=== PATIENT | male | born 1955 | race Caucasian/White ===

== ENCOUNTER 2019-06-06 17:51 | Emergency (ER) | payer MEDICARE, OTHER ==
--- NOTE | 2019-06-06 18:42 | EDM.PDOC ---
ED HPI GENERAL MEDICAL PROBLEM - General Chief Complaint: Genitourinary Problem Stated Complaint: KIDNEY STONE? Time Seen by Provider: 06/06/19 18:38 Source of Information: Reports: Patient History Limitations: Reports: No Limitations - History of Present Illness INITIAL COMMENTS - FREE TEXT/NARRATIVE: pt arrived with pain in the suprapupic area. this started about 8 am and has gotten worse. It is definitely both sides. Onset: Today, Sudden, Other (PT HAD A SUDDEN ONSET OD SUPRAPUBIC PAIN. hE STATES THIS DID COME IN WAVES. hE HAD AN EPISODE OF VERY SEVERE PAIN HE VOIDED JUST BEFORE HE WAS PUT IN THE ROOM. ) Duration: Hour(s): Location: Reports: Abdomen Associated Symptoms: Reports: No Other Symptoms, Other (PT DID HAVE SOME NAUSEAA WHEN THE PAIN WAS SEVERE. hIS BMS HAVE BEEN NORMAL. ) Lower Abdomen Pain Score (Numeric/FACES): 2 - Related Data Allergies Allergy/AdvReac Type Severity Reaction Status Date / Time No Known Allergies Allergy Verified 06/06/19 18:31 Home Meds: Home Meds Aspirin [Halfprin] 81 mg PO DAILY 06/06/19 [History] DULoxetine [Cymbalta] 60 mg PO DAILY 06/06/19 [History] Metoprolol Tartrate 50 mg PO DAILY 06/06/19 [History] amLODIPine [Norvasc] 10 mg PO DAILY 06/06/19 [History] metFORMIN [Glucophage XR] 1,000 mg PO BIDMEALS 06/06/19 [History] ED ROS GENERAL - Review of Systems Review Of Systems: See Below Constitutional: Reports: No Symptoms HEENT: Reports: No Symptoms Respiratory: Reports: No Symptoms Cardiovascular: Reports: No Symptoms Endocrine: Reports: No Symptoms GI/Abdominal: Reports: Abdominal Pain, Other (PT HAS SEVERE PAIN IN THE SUPRAPUBIC AREA. ) : Reports: Other ( SUPRA PUBIC PAIN) Musculoskeletal: Reports: No Symptoms Skin: Reports: No Symptoms Neurological: Reports: No Symptoms ED EXAM, GI/ABD - Physical Exam Exam: See Below Text/Narrative:: PT HAS SEVERE PAIN IN THE SUPRA PUBIC AREA. hE HAS HAD PAIN SINCE 8 am COMING AND GOING. hE HAD SLIGHT NAUSEA. iT HAS FELT LIKE WHEN HE HAS PASSED STONES IN THE PAST. Exam Limited By: No Limitations General Appearance: Alert, Severe Distress, Other ( pT WAS VERY UNCOMFORTABLE JUST HE WAS BEING PUT IN THE ROOM. hE WENT TO THE br AND IT WAS VERY SEVERE AT THAT TIME. ) Ears: Normal TMs Nose: Normal Inspection Throat/Mouth: Normal Inspection Head: Atraumatic Neck: Normal Inspection Respiratory/Chest: No Respiratory Distress Cardiovascular: Normal Peripheral Pulses GI/Abdominal Exam: Soft, Other (MILD SUPRA PUPIC TENDERNESS) Rectal (Males) Exam: Deferred Back Exam: Normal Inspection Extremities: Normal Inspection Neurological: Alert, Oriented, Normal Cognition Course - Vital Signs Last Recorded V/S: Last Vital Signs Temp 35.7 C 06/06/19 18:35 Pulse 94 06/06/19 18:35 Resp 16 06/06/19 18:35 BP 128/81 06/06/19 18:35 Pulse Ox 94 L 06/06/19 18:35 - Orders/Labs/Meds Orders: Active Orders 24 hr Category Date Time Status Sodium Chloride 0.9% [Normal Saline] 1,000 ml Med 06/06/19 19:00 Active IV ASDIRECTED Medication Orders Sodium Chloride (Normal Saline) 1,000 mls @ 999 mls/hr IV ASDIRECTED JANY Last Admin: 06/06/19 19:54 Dose: 999 mls/hr Labs: Laboratory Tests 06/06/19 06/06/19 06/06/19 Range/Units 18:36 18:36 18:36 WBC 10.0 (4.5-11.0) K/uL RBC 4.31 (4.30-5.90) M/uL Hgb 14.8 (12.0-15.0) g/dL Hct 42.0 (40.0-54.0) % MCV 97 (80-98) fL MCH 34 H (27-31) pg MCHC 35 (32-36) % Plt Count 217 (150-400) K/uL Neut % (Auto) 64 (36-66) % Lymph % (Auto) 22 L (24-44) % Meigs % (Auto) 9 H (2-6) % Eos % (Auto) 5 H (2-4) % Baso % (Auto) 0 (0-1) % Sodium 140 (140-148) mmol/L Potassium 4.3 (3.6-5.2) mmol/L Chloride 104 (100-108) mmol/L Carbon Dioxide 25 (21-32) mmol/L Anion Gap 11.4 (5.0-14.0) mmol/L BUN 12 (7-18) mg/dL Creatinine 1.1 (0.8-1.3) mg/dL Est Cr Clr Drug Dosing 70.05 mL/min Estimated GFR (MDRD) > 60 (>60) Glucose 107 H (74-106) mg/dL Calcium 9.1 (8.5-10.1) mg/dL Total Bilirubin 0.5 (0.2-1.0) mg/dL AST 25 (15-37) U/L ALT 48 (12-78) U/L Alkaline Phosphatase 80 (46-116) U/L C-Reactive Protein 0.00 (0.0-0.3) mg/dL Total Protein 7.2 (6.4-8.2) g/dL Albumin 3.9 (3.4-5.0) g/dL Globulin 3.3 (2.3-3.5) g/dL Albumin/Globulin Ratio 1.2 (1.2-2.2) Urine Color Urine Appearance Urine pH (4.5-8.0) Ur Specific [place] (1.008-1.030) Urine Protein (NEGATIVE) mg/dL Urine Glucose (UA) (NEGATIVE) mg/dL Urine Ketones (NEGATIVE) mg/dL Urine Occult Blood (NEGATIVE) Urine Nitrite (NEGAITVE) Urine Bilirubin (NEGATIVE) Urine Urobilinogen (NORMAL) mg/dL Ur Leukocyte Esterase (NEGATIVE) Urine RBC (0-5) Urine WBC (0-5) Ur Epithelial Cells Amorphous Sediment Urine Bacteria Urine Mucus 06/06/19 Range/Units 18:43 WBC (4.5-11.0) K/uL RBC (4.30-5.90) M/uL Hgb (12.0-15.0) g/dL Hct (40.0-54.0) % MCV (80-98) fL MCH (27-31) pg MCHC (32-36) % Plt Count (150-400) K/uL Neut % (Auto) (36-66) % Lymph % (Auto) (24-44) % [place] % (Auto) (2-6) % Eos % (Auto) (2-4) % Baso % (Auto) (0-1) % Sodium (140-148) mmol/L Potassium (3.6-5.2) mmol/L Chloride (100-108) mmol/L Carbon Dioxide (21-32) mmol/L Anion Gap (5.0-14.0) mmol/L BUN (7-18) mg/dL Creatinine (0.8-1.3) mg/dL Est Cr Clr Drug Dosing mL/min Estimated GFR (MDRD) (>60) Glucose (74-106) mg/dL Calcium (8.5-10.1) mg/dL Total Bilirubin (0.2-1.0) mg/dL AST (15-37) U/L ALT (12-78) U/L Alkaline Phosphatase (46-116) U/L C-Reactive Protein (0.0-0.3) mg/dL Total Protein (6.4-8.2) g/dL Albumin (3.4-5.0) g/dL Globulin (2.3-3.5) g/dL Albumin/Globulin Ratio (1.2-2.2) Urine Color Yellow Urine Appearance Clear Urine pH 5.0 (4.5-8.0) Ur Specific [place] 1.005 L (1.008-1.030) Urine Protein Negative (NEGATIVE) mg/dL Urine Glucose (UA) Normal (NEGATIVE) mg/dL Urine Ketones Negative (NEGATIVE) mg/dL Urine Occult Blood Large (NEGATIVE) Urine Nitrite Negative (NEGAITVE) Urine Bilirubin Negative (NEGATIVE) Urine Urobilinogen Normal (NORMAL) mg/dL Ur Leukocyte Esterase Negative (NEGATIVE) Urine RBC 10-20 H (0-5) Urine WBC Not seen (0-5) Ur Epithelial Cells Not seen Amorphous Sediment Rare Urine Bacteria Not seen Urine Mucus Not seen Meds: Medications Generic Name Dose Route Start Last Admin Trade Name Freq PRN Reason Stop Dose Admin Sodium Chloride 1,000 mls @ 999 mls/hr 06/06/19 19:00 06/06/19 19:54 Normal Saline IV 999 mls/hr ASDIRECTED [facility] Administration - Re-Assessments/Exams Free Text/Narrative Re-Assessment/Exam: 06/06/19 20:46 PT HAD RBCS IN HIS URINE. hIS URINE DID NOT APPEAR INFECTED. hE HAD A CAT SCAN OF THE ABDOMAN PELVIS WITHOUT CONTRAST AND HE HAD STONES IN BOTH KIDNEYS, HE HAD A 3 MM STONE EITHER IN THE BLADDER OR IN THE WALL OF THE BLADDER. i BELIEVE SINCE HE REMAINED PAINFREE FOR 2 HOURS THAT HE [PASSED IT INTO THE BLADDER. Departure - Departure Time of Disposition: 20:37 Disposition: Home, Self-Care 01 Condition: Fair Clinical Impression: Stone, bladder, Renal colic - Discharge Information Referrals: PCP,None [Primary Care Provider] - Forms: ED Department Discharge Care Plan Goals: cat scan showed a 3 mm stone in the bladder or in the wall of the bladder. i BELIEVE THE LAST EPISODE OF PAIN WHICH WAS FELT IS WHEN THE STONE PASSED-- HE WENT TO THE BR JUST BEFORE BEING PUT IN THE ROOM T PUSH FLUIDS, TOROFOL 10 MG Q6H PRN FOR PAIN, ONLY FILL IF PAIN REOCCURS. - My Orders Last 24 Hours: My Active Orders 06/06/19 19:00 Sodium Chloride 0.9% [Normal Saline] 1,000 ml IV ASDIRECTED - Assessment/Plan Last 24 Hours: My Active Orders 06/06/19 19:00 Sodium Chloride 0.9% [Normal Saline] 1,000 ml IV ASDIRECTED
[2019-06-06] MEDS ORDERED: Sodium Chloride 0.9% 1,000 ML IV SCH (19:00)
--- NOTE | 2019-06-06 20:34 | CRLCT ---
INDICATION: Suprapubic abdominal pain. TECHNIQUE: Multiple axial images were obtained from the diaphragm to the symphysis pubis without contrast. Sagittal and coronal re-formatted images were obtained. COMPARISON: None. FINDINGS: The visualized portion of the lung bases are clear. The liver, spleen, pancreas and adrenal glands are of unremarkable nonenhanced CT appearance. There are 2 stones in the right kidney largest in the mid kidney measuring 0.6 x 0.2 cm. There is a 4 cm cyst in lower pole of the right kidney and a second 1.4 cm cyst in the right mid kidney. There is no right hydronephrosis. There is a 0.3 cm stone which is either at the right ureterovesical junction or just into the urinary bladder. In the left kidney there are 2 stones seen largest in the upper pole measuring 0.7 x 0.3 cm. There is no left hydronephrosis. There is no stone seen in the left ureter. There is no evidence of a bowel obstruction. The appendix is visualized in the right lower quadrant and is unremarkable. There are diverticula in the descending and sigmoid colon. There is no evidence of a diverticulitis. The abdominal aorta is normal in caliber. There are atherosclerotic calcification. There are calcifications in the prostate gland. There are phleboliths in the pelvis. There is no free fluid identified in the abdomen or pelvis. There are degenerative changes in the spine. IMPRESSION: 1. 0.3 cm stone which is either right at the ureterovesical junction or just into the urinary bladder. No other ureteral stone seen. No hydronephrosis. 2. Bilateral kidney stones. 3. Right kidney cysts. 4. Diverticulosis. No evidence of a diverticulitis. Dictated by Joshua Buck MD @ 06/06/2019 8:30:08 PM Please note that all CT scans at this facility use dose modulation, iterative reconstruction, and/or weight-based dosing when appropriate to reduce radiation dose to as low as reasonably achievable. Dictated by: Joshua Buck MD @ 06/06/2019 20:32:09 (Electronically Signed)
== END 2019-06-06 21:09 | disposition home or self-care (01) ==
LOC: JP.ED 17:51
DX: N20.0 Calculus of kidney (principal); N21.0 Calculus in bladder; Z79.899 Other long term (current) drug therapy; Z79.82 Long term (current) use of aspirin
CPT/HCPCS: 36415; 74176; 80053; 81001; 85025; 86140; 96360; 99284; J7030; 99283